=== PATIENT | male | born 1980 | race Caucasian/White ===

== ENCOUNTER 2023-03-01 11:32 | Emergency (ER) | payer OTHER ==
[~2023-03-01] VITALS: Ht 177.8 cm; Wt 113.0 kg
[2023-03-01 11:34] VITALS: O2SAT 97
[2023-03-01 11:45] VITALS: TEMP 102.2
[2023-03-01] MEDS ORDERED: KETOROLAC 30MG/ML VIAL IV STA (11:51)
[2023-03-01] MEDS ORDERED: ONDANSETRON HCL 4MG/2ML INJ IV STA ×2 (11:51→13:58)
[2023-03-01] MEDS ORDERED: SODIUM CHLORIDE 0.9% 1,000 ML IV ONE (12:00)
[2023-03-01 12:41] LABS: HEMOGLOBIN. 12.2 g/dL (14.0-18.0); MEAN CORPUSCULAR HEMOGLOBIN 31.6 pg (28.0-32.0); MEAN CORPUSCULAR HGB CONC 34.9 g/dL (31.0-37.0); MEAN CORPUSCULAR VOLUME 90.3 fL (80.0-94.0); MEAN PLATELET VOLUME 7.1 fl (7.4-10.4); PLATELET 66 x1000/uL (130-400); RED BLOOD CELL COUNT 3.88 mill/uL (4.7-6.1); RED CELL DISTRIBUTION WIDTH 14.1 % (11.6-14.6); WHITE BLOOD COUNT 14.4 x1000/uL (4.5-11.0)
[2023-03-01 12:46] LABS: DIFFERENTIAL COMMENT 1
[2023-03-01 12:56] LABS: CHLORIDE 102 mEq/L (98-107); INDEX HEMOLYSI 1 (1-3); INDEX ICTERIC 1 (1-4); INDEX LIPEMIC 1 (1-3); SODIUM 133 mEq/L (136-145)
[2023-03-01 13:12] LABS: ALANINE AMINOTRANSFERASE 63 IU/L (13-61); ALBUMIN 4.3 g/dL (3.4-5.0); ASPARTATE AMINOTRANSFERASE 92 IU/L (15-37); BILIRUBIN TOTAL 0.4 mg/dL (0.1-1.0); CALCIUM 9.2 mg/dL (8.5-10.1); CARBON DIOXIDE 20 mEq/L (21-32); CREATININE 0.8 mg/dL (0.6-1.3); GLUCOSE 146 mg/dL (70-105); PROTEIN TOTAL 7.2 g/dL (6.0-8.3); UREA NITROGEN BLOOD 20 mg/dL (7-21)
[2023-03-01] MEDS ORDERED: MORPHINE SULFATE 4 MG/ML CPJ (NOT FOR IM USE) IV STA (13:58)
[2023-03-01] MEDS ORDERED: OMEP40CA20 MT (13:59)
[2023-03-01] MEDS ORDERED: ONDA4TAB50 MT (13:59)
[2023-03-01 14:45] LABS: *AMPHETAMINES SCREEN URINE NEGATIVE (NEGATIVE); *BARBITURATES SCREEN URINE NEGATIVE (NEGATIVE); *BENZODIAZEPINES SCREEN URINE NEGATIVE (NEGATIVE); *COCAINE SCREEN URINE NEGATIVE (NEGATIVE); CANNABINOID URINE SCREEN NEGATIVE (NEGATIVE); ECSTASY MDMA SCREEN URINE NEGATIVE (NEGATIVE); METHADONE URINE SCREEN NEGATIVE (NEGATIVE); OPIATES URINE SCREEN PRESUMTIVE POSITIVE (NEGATIVE); PHENCYCLIDINE URINE SCREEN NEGATIVE (NEGATIVE)
[2023-03-01 14:57] VITALS: BP 117/67; PULSE 85; RESP 16
[2023-03-01 15:51] LABS: NUCLEATED RED BLOOD CELLS 4 /100 WBC
[2023-03-01 15:53] LABS: PLATELET ESTIMATE NORMAL
== END 2023-03-01 14:59 | disposition home or self-care (01) ==
LOC: ER 12:19
DX: R10.33 Periumbilical pain (principal); E11.9 Type 2 diabetes mellitus without complications
CPT/HCPCS: 80053; 80305; 83690; 85025; 86850; 86900; 86901; 36415; 74176; 93005; 96361; 96374; 96375; 96376; 99285; J1885; J2405; J2270; J7030; Z7610 ×2